=== PATIENT | male | born 1980 | race African-American/Black ===

== ENCOUNTER → 2018-03-15 06:18 | Day surgery (SDC) | payer OTHER ==
[~2018-03-15 06:18] MED LIST: Atracurium* 10 MG/ML 10 ML VIAL ONE; Buffered Lidocaine 0.9% SYRIN* 5 ML/SYR SYRINGE INTRADERM ONE; Bupivacaine 0.25% SDV PF* 10 ML VIAL INJ ONE; Bupivacaine 0.5% PF 10 ML VIAL INJ ONE; Dexamethasone IV* 4 MG/ML 1 ML (4 MG) ONE; DiMENhydriNATE IV* 50 MG/ML VIAL IV PUSH PRN; EPINEPHRINE 1 MG/ML 1 ML VIAL ONE; HYDROmorphone INJ* 0.5 MG/0.5 ML SYRINGE IV PRN; Ketorolac INJ* 30 MG/ML 1 ML VIAL ONE; Midazolam* 1 MG/ML 5 ML VIAL (5 MG) ONE; Naloxone* 0.4 MG/ML 1 ML VIAL IV PRN; Ondansetron INJ* 2 MG/ML VIAL IV PRN; Ondansetron INJ* 2 MG/ML VIAL ONE; Propofol* 10 MG/ML 20 ML BTL IV PUSH ONE; ceFAZolin 2 GM PREMIX (*) 2 GM/50 ML BAG IVPB ONE; fentaNYL* 50 MCG/ML 2 ML VIAL (100 MCG VIAL) IV PRN; fentaNYL* 50 MCG/ML 2 ML VIAL (100 MCG VIAL) ONE; oxyCODONE/Acetamin 5/325 MG* TAB PO PRN
[2018-03-15 11:55] VITALS: BP 149/86
--- NOTE | 2018-03-18 00:33 | OP ---
OPERATIVE REPORT: DATE OF OPERATION: 03/15/18 - [facility] DATE OF : 76 SURGEON: Yosvany Coleman MD FACULTY RESEARCH ASSISTANT: SARKIS Peralta A physician real estate assistant was required for the length of the procedure for help with positioning, instrumentation, and closure. ANESTHESIOLOGIST: Tj Rosado MD ANESTHESIA: General anesthesia, regional interscalene block anesthesia, local anesthesia consisting of approximately 10 cc of Marcaine of 0.25% without epinephrine. PRE-OP DIAGNOSES: 1. Left shoulder rotator cuff tear, supraspinatus, full thickness or near full thickness. 2. Left shoulder AC joint arthritis, possible prior AC joint separation, low grade. 3. Left shoulder subacromial impingement. 4. Left shoulder possible proximal biceps tendinosis or superior labral tear. POST-OP DIAGNOSES: 1. Left shoulder rotator cuff supraspinatus, near full thickness under-sided tear. 2. Left shoulder AC joint arthritis. 3. Left shoulder subacromial impingement. 4. Left shoulder superior labral tear, unstable. OPERATIVE PROCEDURE: 1. Left shoulder arthroscopic rotator cuff tendon repair, supraspinatus, double - row. 2. Left shoulder arthroscopic subacromial decompression. 3. Left shoulder arthroscopic distal clavicle resection. 4. Left shoulder open proximal biceps tenodesis, subpectoral. ANTIBIOTICS: Ancef 2 g IV. IV FLUIDS: 1900 cc crystalloid. SSXL-AF-NDRL TIME: 108 minutes. ARTHROSCOPY FLUID UTILIZED: 8 bags, each 3 L for a total of 24 L. COMPLICATIONS: None. SPECIMEN: None. IMPLANTS: Mitek Healix 5.5 mm triple loaded anchor x1. Mitek Healix knotless anchor 5.5 mm x1. Arthrex proximal BicepsButton x1. ESTIMATED BLOOD LOSS: Minimal. INDICATIONS FOR PROCEDURE: The patient is a 37-year-old man, right-hand dominant, prisoner at the [facility], who presented to me in clinic with a 7 to 8 year history of left shoulder pain. He did not describe any specific trauma, but it continued to hurt him. The patient responded insufficiently to nonoperative management, full spectrum. MRI showed a near full thickness or full thickness tear the anterior supraspinatus. AC joint showed degenerative changes on x-ray and MRI. Some calcification about the lateral acromion noted on imaging. The patient's exam was concerning for some biceps or superior labral pathology. Discussed risks and potential complications of surgery including bleeding, infection, nerve or blood vessel injury, shoulder pain, stiffness, osteoarthritis, rotator cuff tendon retear. DESCRIPTION OF PROCEDURE: In preoperative holding, the patient signed a written consent. Operative extremity was marked in the preoperative holding. The patient underwent a regional interscalene block performed by Dr. Rosado. The patient was then taken to the operating room and placed supine on the operating room table. The patient was sedated and intubated. The patient was then transferred into the lateral decubitus position with the left shoulder up. Longitudinal traction, 15 pounds, appropriate amount of abduction and forward flexion. The left shoulder was prepped and draped. Surgical time-out was performed. Spinal needle was placed from posterior into the glenohumeral joint and 30 cc of normal saline infused. I then made a posterior portal using standard technique. I then started my arthroscopic diagnostic tour of the patient's glenohumeral joint. There was no clear rotator cuff pathology of the subscapularis, supraspinatus, or infraspinatus. No significant articular cartilage wear on either glenoid or humeral head. No loose body visible in the axillary pouch. I established an anterior glenohumeral joint portal under direct visualization. There appeared to be some tearing of the superior labrum. This appeared unstable as it lifted off the glenoid rim at least 5 mm. I therefore made the decision to treat the biceps and superior labrum. I released the biceps tendon with an arthroscopic biter. I smoothed out the superior labrum with an arthroscopic shaver. I looked carefully at the supraspinatus. There did appear possibility to some area where the tendon did not look torn from the undersurface, but looked thin. I used a spinal needle to miguel that area from the outside. All fluid and instruments were removed from the glenohumeral joint. I entered the subacromial space from posterior and anterior. I placed a plastic cannula anteriorly. I established a lateral subacromial portal under direct visualization. I debrided some bursitic tissue from the subacromial space. The spinal needle had been marking the area of thinness, but this was hardly needed. There was a clear very high grade partial thickness tear on the bursal side of the supraspinatus. It appeared to be almost full thickness, approximately 90%. After debriding bursitic tissue around the subacromial space, I created a posterolateral portal for improved visualization. I completed the supraspinatus tear and removed poor tissue about the end of the tendon. I prepared the footprint with vapor and then with arthroscopic killian. I then performed a subacromial decompression with arthroscopic killian, smoothing out the spurs on the undersurface of the acromion. I added another plastic cannula from laterally. I next placed an anchor through a superolateral poke hole on the skin. I placed a triple loaded Mitek Healix anchor in the more medial aspect of the footprint. I threw 3 horizontal mattress stitches using a Bazan and NephGeoli.st Classifieds suture passer. I passed all sutures before tying any of them. I tied my 3 knots. I then took 4 sutures from the medial row and placed them into a lateral row anchor, Healix from Mitek knotless suture anchor. I liked my repair. There was not a dog ear, but a tiny amount of tissue all the way posteriorly that I felt could be brought to bone slightly better. Therefore, I used the free suture from the lateral row anchor and placed a simple stitch through that tissue using a Mitek [place] suture passer. I liked my rotator cuff repair both visually and through probing. I moved to the AC joint. I debrided bursitic tissue with a vapor and then removed 8 mm of distal end of the clavicle with an arthroscopic killian. I removed all fluid from the subacromial space. I closed skin incisions with [id number] and 12 stitches using nylon 3.0 suture. The recinos bag was softened and the patient was converted to a more supine position from lateral decubitus. Anesthesia was watching neck and head throughout. We then transferred the patient shifting to the patient's right. So, he is directly overlying the table. That setup was changed slightly. I made a short approximately 4 cm longitudinal incision over the proximal anteromedial left upper arm, centered just distal to the pectoralis major tendon. I dissected down to the pectoralis major tendon and followed up to the bicipital groove. Placed retractors. Retrieved long head of biceps tendon. Made my drill hole in the anterior humeral shaft with a pin. Marked my biceps for the correct length-tension relationship. Placed 3 stitches in the biceps with suture. Loaded by biceps button, placed it and flipped it, tied a knot. I used a free needle to place and then tie another knot. Cut suture ends as well as removed the stump of the biceps, proximal. Irrigation. Closure of the subcutaneous tissue with buried simple stitches using Vicryl 3-0 suture. Closure of the subcuticular layer with a running stitch using Monocryl 4-0 suture. Mastisol followed by Steri-Strips. 4x4s and then Tegaderm. For the arthroscopic skin incisions, we covered those with Xeroform, 4x4s, ABD, and foam tape. Sling and abduction pillow. The patient was awakened and transferred to the PACU. We were told that prisoners were not allowed an ice pack unit, so we just provided a simple bag of ice. DISPOSITION: The patient was to receive Percocet as needed for pain control, aspirin b.i.d. x2 weeks for DVT prophylaxis and Keflex 3 times a day for 1 week for infection prophylaxis. The antibiotics are given the open incision as the patient is being a snf resident. The patient will be in the sling at all times for 6 weeks postoperatively day and night. He is to follow up with me in approximately 10 to 14 days postoperative. We will hold off on the patient starting physical therapy until after that clinic visit given the varying quality of snf physical therapy in my experience. [id number]/[facility] #: [id number] RADHA
== END | disposition home or self-care (01) ==
LOC: OR 06:18
PROVIDERS: ATTEND Orthopaedic Surgery
DX: S46.012A Strain of muscle(s) and tendon(s) of the rotator cuff of left shoulder, initial encounter (principal); M75.42 Impingement syndrome of left shoulder; X50.0XXA Overexertion from strenuous movement or load, initial encounter; Y92.9 Unspecified place or not applicable; K21.9 Gastro-esophageal reflux disease without esophagitis; Z72.0 Tobacco use; G89.18 Other acute postprocedural pain
CPT/HCPCS: C1776; J0690; J1100; J1885; J2250; J2405; J2704; J3010; J3490